=== PATIENT | male | born 1950 | race Caucasian/White ===

== ENCOUNTER 2022-11-22 06:23 | Day surgery (SDC) | payer MEDICAID, OTHER ==
[~2022-11-22] VITALS: Ht 160 cm; Wt 72.6 kg
[2022-11-22] MEDS ORDERED: MIDAZOLAM HCL 5 MG/5 ML VIAL ONE (07:09)
[2022-11-22] MEDS ORDERED: MEPERIDINE 100 MG INJ. 100 MG/ML VIAL ONE (07:09)
[2022-11-22 08:16] VITALS: O2SAT 95
[2022-11-22 14:35] VITALS: BP_SYST 139; PULSE 82; RESP 16
== END 2022-11-22 09:20 | disposition home or self-care (01) ==
LOC: SMU 06:23 → SDS 06:23
PROVIDERS: ATTEND Internal Medicine Gastroenterology
DX: Z12.11 Encounter for screening for malignant neoplasm of colon (principal); D12.3 Benign neoplasm of transverse colon; K57.30 Diverticulosis of large intestine without perforation or abscess without bleeding; K64.8 Other hemorrhoids; I10 Essential (primary) hypertension; E78.5 Hyperlipidemia, unspecified; E11.9 Type 2 diabetes mellitus without complications; Z79.899 Other long term (current) drug therapy
CPT/HCPCS: 45385; 88305; J2175; J2250